=== PATIENT | male | born 1960 | race African-American/Black ===

== ENCOUNTER → 2019-10-30 | Outpatient (CLI) | payer BC ==
--- NOTE | 2019-10-30 15:00 | US ---
EXAMINATION TYPE: US kidneys/renal and bladder DATE OF EXAM: 10/30/2019 COMPARISON: NONE CLINICAL HISTORY: R80.9 proteinuria, patient states hematuria. EXAM MEASUREMENTS: Right Kidney: 11.0 x 4.1 x 4.1 cm Left Kidney: 10.2 x 5.4 x 4.9 cm Right Kidney: No hydronephrosis, nephrolithiasis or masses seen Left Kidney: No hydronephrosis, nephrolithiasis or masses seen, inferior pole slightly obscured by jimmy wel gas Bladder: wnl Bilateral Jets seen: Yes Bladder distends normally. Bladder wall thickness normal. Renal cortex is maintained bilaterally. IMPRESSION: No hydronephrosis or nephrolithiasis..
== END | disposition home or self-care (01) ==
LOC: RADUSMAIN 12:20
PROVIDERS: ATTEND Family Medicine
DX: R80.9 Proteinuria, unspecified (principal)
CPT/HCPCS: 76770

== ENCOUNTER → 2020-03-29 | Outpatient (CLI) | payer BC ==
--- NOTE | 2020-03-29 16:50 | US ---
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 Bilateral axillary palpables Right Axilla US: multiple lymph nodes seen with largest noted midline = 4.2 x1.4 x 1.8cm. Left Axilla US: couple of lymph nodes are seen with larger node = 3.7x 1.8 x 1.5cm. Enlarged bilateral axillary lymph nodes nodes with loss of fatty hilum on the right are identified. IMPRESSION: As above. Differential includes neoplasm such as lymphoma versus infectious and/or infla mmatory etiologies. Consider hematology oncology referral and/or further workup.
== END | disposition home or self-care (01) ==
LOC: RADUSWWP 15:17
PROVIDERS: ATTEND Family Medicine
DX: D17.21 Benign lipomatous neoplasm of skin and subcutaneous tissue of right arm (principal); D17.22 Benign lipomatous neoplasm of skin and subcutaneous tissue of left arm

== ENCOUNTER → 2022-08-15 | Outpatient (CLI) | payer OTHER ==
[2022-08-15 11:39] LABS: HCT 42.1 % (39.0-53.0); HGB 12.7 gm/dL (13.0-17.5); Hypochromasia Marked; MCH 24.5 pg (25.0-35.0); MCV 81.7 fL (80.0-100.0); Mean Platelet Volume 7.3; Platelet Count 266 k/uL (150-450); RBC 5.16 m/uL (4.30-5.90); RDW 14.3 % (11.5-15.5); WBC 5.8 k/uL (3.8-10.6)
[2022-08-15 11:44] LABS: ALT 20 U/L (4-49); AST 24 U/L (17-59); African American GFR (CKD) >90 (>60 ml/min/1.73 sqM); Albumin 4.8 g/dL (3.5-5.0); Albumin/Globulin Ratio 1.4; Alkaline Phosphatase 48 U/L (38-126); Anion Gap 9 mmol/L; Blood Urea Nitrogen 13 mg/dL (9-20); Calcium 9.5 mg/dL (8.4-10.2); Carbon Dioxide 27 mmol/L (22-30); Chloride 104 mmol/L (98-107); Globulin 3.4 g/dL; Glucose 101 mg/dL (74-99); Non-African American GFR(CKD) 79 (>60 ml/min/1.73 sqM); Potassium 4.1 mmol/L (3.5-5.1); Sodium 140 mmol/L (137-145); Total Bilirubin 0.9 mg/dL (0.2-1.3); Total Protein 8.2 g/dL (6.3-8.2)
--- NOTE | 2022-08-15 13:30 | CT ---
EXAMINATION TYPE: CT abdomen pelvis w con CT DLP: 1147 mGycm, Automated exposure control for dose reduction was used. DATE OF EXAM: 08/15/2022 1:17 PM COMPARISON: CT abdomen pelvis most recent from 07/01/2018 . CLINICAL INDICATION:Male, 62 years old with history of R10.32 LEFT LOWER QUADRANT PAIN; LLQ pain TECHNIQUE: Standard CT of the abdomen and pelvis following the administration of 60 cc of Isovue 30 0 IV contrast material and oral contrast. Coronal and sagittal reformats were performed. FINDINGS: LOWER CHEST: Unremarkable ABDOMEN LIVER: Unremarkable GALLBLADDER AND BILE DUCTS: Unremarkable. PANCREAS: Unremarkable. SPLEEN: Unremarkable. ADRENAL GLANDS: Unremarkable. KIDNEYS AND URETERS: No evidence of hydronephrosis or renal calculus. The kidneys enhance symmetrical ly. PELVIS BLADDER: Unremarkable REPRODUCTIVE: Unremarkable. ABDOMEN & PELVIS STOMACH AND BOWEL: Stomach and duodenum are unremarkable. Distal colonic diverticulosis without evide nce for acute diverticulitis. Enteric contrast reaches the rectum. The appendix is within normal limi ts. No evidence of bowel obstruction. PERITONEUM: No evidence of pneumoperitoneum or free fluid. VASCULATURE: No evidence of aortic aneurysm. Few pelvic phleboliths. MUSCULOSKELETAL: No acute osseous abnormalities . Mild multilevel degenerative disc disease. Multilev el facet arthropathy. LYMPH NODES: No gross evidence for lymphadenopathy. SOFT TISSUE/ABDOMINAL WALL: Small fat filled umbilical hernia. IMPRESSION: 1. No acute abdominal/pelvic process. 2. Colonic diverticulosis without evidence for acute diverticulitis.
== END | disposition home or self-care (01) ==
LOC: RADCTMAIN 10:47
PROVIDERS: ATTEND Family Medicine
DX: K57.30 Diverticulosis of large intestine without perforation or abscess without bleeding (principal)
CPT/HCPCS: 80053; 85027; 74177; 36415; Q9967

== ENCOUNTER → 2023-12-12 | Outpatient (CLI) | payer OTHER ==
--- NOTE | 2023-12-18 15:06 | CT ---
EXAMINATION TYPE: CT abdomen pelvis w con CT DLP: 882.7 mGycm, Automated exposure control for dose reduction was used. DATE OF EXAM: 12/12/2023 1:11 PM COMPARISON: CT abdomen pelvis most recent from CLINICAL INDICATION:Male, 63 years old with history of R10.9 UNSPECIFIED ABDOMINAL PAIN; abdominal pa in, history of diverticulitis. TECHNIQUE: Axial CT abdomen pelvis w con;Sagittal and coronal reformats were created on a separate w orkstation. Contrast used:100 ml mL of Isovue 300 with IV Contrast, (none if empty) Oral contrast used: with Oral Contrast (none if empty) FINDINGS: LOWER CHEST: Lung bases are clear. No pleural effusions. ABDOMEN LIVER: Unremarkable GALLBLADDER AND BILE DUCTS: Unremarkable. PANCREAS: Unremarkable. SPLEEN: Unremarkable. ADRENAL GLANDS: Unremarkable. KIDNEYS AND URETERS: No evidence of hydronephrosis or renal calculus. The ureters are unremarkable. PELVIS BLADDER: Unremarkable REPRODUCTIVE: Unremarkable. ABDOMEN & PELVIS STOMACH AND BOWEL: Stomach and duodenum are unremarkable. No evidence of bowel obstruction. Noninfl delta diverticula are appreciated. PERITONEUM/RETROPERITONEUM: No evidence of pneumoperitoneum or free fluid. VASCULATURE: No evidence of aortic aneurysm. MUSCULOSKELETAL: No acute osseous abnormalities LYMPH NODES: No gross evidence for lymphadenopathy. SOFT TISSUE/ABDOMINAL WALL: Unremarkable IMPRESSION: 1. No acute process is identified.
== END | disposition home or self-care (01) ==
LOC: RADCTMAIN 11:07
PROVIDERS: ATTEND Family Medicine
DX: R10.9 Unspecified abdominal pain (principal)
CPT/HCPCS: 74177; Q9967

== ENCOUNTER → 2024-05-22 | Outpatient (CLI) | payer OTHER ==
--- NOTE | 2024-05-22 13:03 | CTL ---
EXAMINATION TYPE: CT Low Dose Lung DATE OF EXAM ORDERED: 05/22/2024 HISTORY: Personal history nicotine dependence, 29 pack-year history, current social smoker. Lung [facility] er screening CT DLP: [address] CTDI: 2.40 mGy Automated exposure control for dose reduction was used. SCREENING VISIT: First screening visit COMPARISON: None TECHNIQUE: Low dose computed tomography scan was performed through the chest at 1 mm thick sections a nd reconstructed images in multiple planes at 1 mm and [address] DIAGNOSTIC QUALITY: Satisfactory FINDINGS: Nodules: No clinically significant pulmonary nodules. LUNGS: COPD: Severity: None Fibrosis: Severity: None Lymph nodes: None Other findings: Minimal bilateral lower lobe linear scarring and/or atelectasis. RIGHT PLEURAL SPACE: Effusion: None Calcification: None Thickening: None Pneumothorax: None LEFT PLEURAL SPACE: Effusion: None Calcification: None Thickening: None Pneumothorax: None HEART: Heart Size: Normal Coronary Calcification: None Pericardial Effusion: None OTHER FINDINGS: Upper abdomen: Diverticulosis of the transverse colon visualized. Bony thorax: DISH of the thoracic spine. Supraclavicular region: None Other: None IMPRESSION: No clinically significant pulmonary nodules. CT LUNG RAD AND CT CHEST RECOMMENDATION: Lung-Rad 1 Negative: Continue annual screening with LDCT in 12 months. S Modifier (other clinically significant findings): None [facility], , 05/22/2024 1:00 PM
== END | disposition home or self-care (01) ==
LOC: RADCTMAIN 12:03
PROVIDERS: ATTEND Family Medicine
DX: Z12.2 Encounter for screening for malignant neoplasm of respiratory organs (principal); F17.210 Nicotine dependence, cigarettes, uncomplicated
CPT/HCPCS: 71271